=== PATIENT | female | born 1955 | race Caucasian/White ===

== ENCOUNTER 2019-04-21 14:47 | Emergency (ER) | payer OTHER ==
[~2019-04-21] VITALS: Ht 165.1 cm; Wt 86.2 kg
--- NOTE | 2019-04-21 15:17 | NUR ---
Dr Phoenix at the bedside for MSE.
[2019-04-21 15:21] LABS: *BILIRUBIN,URIN NEGATIVE (NEGATIVE); *BLOOD, URINE NEGATIVE (NEGATIVE); *CLARITY,URINE CLEAR (CLEAR); *COLOR,URINE YELLOW (YELLOW); *KETONES,URINE NEGATIVE (NEGATIVE); *UROBILINOGEN,URINE 0.2 E.U./dl (NORMAL); LEUKOCYTE ESTERASE ,URINE NEGATIVE (NEGATIVE); NITRITE, URINE NEGATIVE (NEGATIVE); UGLUCOSE NEGATIVE (NEGATIVE)
[2019-04-21 15:35] LABS: BASOPHILS % (AUTO) 0.3 % (0.0-2.0); EOSINOPHILS % (AUTO) 0.9 % (0.0-7.0); HEMATOCRIT 41.7 % (31.2-41.9); LYMPHOCYTES # (AUTO) 1.8 K/uL (20.0-40.0); MEAN CORPUSCULAR HEMOGLOBIN 30.6 uug (24.7-32.8); MEAN CORPUSCULAR HGB CONC 34 g/dL (32.3-35.6); MEAN CORPUSCULAR VOLUME 91.3 fL (75.5-95.3); MONOCYTES # (AUTO) 0.2 K/uL (2.0-10.0); MONOCYTES % (AUTO) 4.3 % (0.0-11.0); NEUTROPHILS # (AUTO) 2.3 K/uL (1.8-8.9); NEUTROPHILS % (AUTO) 52.5 % (38.5-71.5); PLATELET COUNT (AUTO) 179 K/uL (179-408); RED BLOOD CELL COUNT(AUTO) 4.56 MIL/uL (3.63-4.92); WHITE BLOOD COUNT (AUTO) 4.4 K/uL (3.8-11.8)
[2019-04-21 15:40] LABS: CREATININE 0.8 mg/dL (0.6-1.3); POTASSIUM 4.2 mmol/L (3.5-5.1)
[2019-04-21 15:46] LABS: BILIRUBIN,DIRECT 0.1 mg/dL (0.0-0.2); BILIRUBIN,TOTAL 0.6 mg/dL (0.2-1.0); TOTAL PROTEIN, SERUM 7.6 g/dL (6.4-8.2)
--- NOTE | 2019-04-21 16:37 | NUR ---
Patient discharged to home in stable conditon. Written and verbal after care instructions given. Patient verbalizes understanding of instructions.
[2019-04-21 16:38] VITALS: BP 134/66
== END 2019-04-21 16:38 | disposition home or self-care (01) ==
LOC: ER 15:00
DX: K29.70 Gastritis, unspecified, without bleeding (principal); Z91.018 Allergy to other foods
CPT/HCPCS: 36415; 83690; 85025; 85730; A4663